=== PATIENT | male | born 1960 | race Hispanic/Latino ===

== ENCOUNTER 2018-07-07 00:20 | Emergency (ER) | payer OTHER ==
--- NOTE | 2018-07-07 01:00 | C.PDOC ---
History Of Present Illness 57 y/o male pt brought to the ER by EMS after he was found lying on the street intoxicated. Pt is drunk and reports he wants a place to stay. Pt denies SI/HI and has no physical complaints. Time Seen by Provider: 07/07/18 00:58 Chief Complaint (Nursing): Substance Abuse History Per: Patient History/Exam Limitations: intoxication Onset/Duration Of Symptoms: Hrs Current Symptoms Are (Timing): Still Present Modifying Factor(s): Alcohol Associated Symptoms: denies: Suicidal Thoughts, Suicidal Plan, Other (homicidal ideation) Involuntary Hold By: None Recent travel outside of the [place]: No Additional History Per: EMS Past Medical History Reviewed: Historical Data, Nursing Documentation, Vital Signs Vital Signs: Last Vital Signs Temp 97.5 F L 07/07/18 00:32 Pulse 69 07/07/18 00:32 Resp 18 07/07/18 00:32 BP 123/79 07/07/18 00:32 Pulse Ox 96 07/07/18 00:32 - Medical History PMH: Arthritis, HTN, Rheumatoid Arthritis - [facility] Procedures CL REDUC DISLOC-SHOULDER (12/05/13) Family History: States: No Known Family Hx - Social History Hx Tobacco Use: Yes Hx Alcohol Use: Yes Hx Substance Use: Yes (smokes pot) - Immunization History Hx Tetanus Toxoid Vaccination: No Hx Influenza Vaccination: No Hx Pneumococcal Vaccination: No Review Of Systems Constitutional: Positive for: Other (drunk ) Psych: Negative for: Suicidal ideation, Other (homicidal ideation) Physical Exam - Physical Exam Appears: Non-toxic Skin: Warm, Dry Head: Normacephalic Eye(s): bilateral: Normal Inspection Neck: Trachea Midline, Supple Chest: Symmetrical Cardiovascular: Rhythm Regular Respiratory: No Rales, No Rhonchi, No Wheezing Gastrointestinal/Abdominal: Soft, No Tenderness Extremity: Bilateral: Normal Color And Temperature Neurological/Psych: Oriented x3 ED Course And Treatment O2 Sat by Pulse Oximetry: 96 (RA) Pulse Ox Interpretation: Normal Reevaluation Time: 05:43 Reassessment Condition: Improved Disposition Counseled Patient/Family Regarding: Studies Performed, Diagnosis, Need For Followup - Disposition Referrals: [facility] [Outside] Disposition: HOME/ ROUTINE Disposition Time: 00:59 Condition: FAIR Instructions: Alcohol Abuse and Alcoholism (DC) Forms: [employer] (Estonian) - Clinical Impression Clinical Impression: Alcohol intoxication - Scribe Statement The provider has reviewed the documentation as recorded by the Scribe Ordoñez Do Provider Attestation: All medical record entries made by the Scribe were at my direction and person ally dictated by me. I have reviewed the chart and agree that the record accurately reflects my personal performance of the history, physical exam, medical decision making, and the department course for this patient. I have also personally directed, reviewed, and agree with the discharge instructions and disposition.
[2018-07-07 05:56] VITALS: BP 133/86; PULSE 81; RESP 16; TEMP 97.8; O2SAT 99
== END 2018-07-07 06:27 | disposition home or self-care (01) ==
LOC: C.ER 00:20
DX: F10.129 Alcohol abuse with intoxication, unspecified (principal); I10 Essential (primary) hypertension; M06.9 Rheumatoid arthritis, unspecified; Z72.0 Tobacco use

== ENCOUNTER 2018-08-21 06:27 | Day surgery (SDC) | payer OTHER ==
--- NOTE | 2018-08-21 08:23 | CP.SDSHP ---
Same Day Surgery H & P - History Proposed Procedure: Surveillance Egd Pre-Op Diagnosis: Liver Mass. Cirrhosis. r/o varices/surveillance - Previous Medical/Surgical History Cardiac: Hypertension Misc: Other (Chronic HCV, Cirrhosis, Liver mass suspicious for HCC) Comments: surveillance for varicies required as part of pre-operative evaluation for treatment of liver mass/hepatoma likely Previous Surgical History: bilat inguinal hernia. left knee menscus surgery - Allergies Allergies: Allergies No Known Allergies Allergy (Verified 08/21/18 06:48) - Physical Exam Vital Signs: Vital Signs 08/21/18 06:40 Temperature 97.5 F L Pulse Rate 60 Respiratory 19 Rate Blood Pressure 116/73 O2 Sat by Pulse 97 Oximetry Mental Status: Alert & Oriented x3 Neuro: WNL Heart: WNL Lungs: WNL GI: WNL - Impression Impression: liver mass. cirrhosis from HCV. surveillance for varicies Pt. Evaluated Today:Candidate for Anesthesia & Procedure: Yes - Date & Time Date: 08/21/18 Time: 08:23 Short Stay Discharge - Short Stay Discharge Admitting Diagnosis/Reason for Visit: CIRRHOSIS / CHRONIC VIRAL HEPATITIS C Disposition: HOME/ ROUTINE
[2018-08-21] MEDS ORDERED: Midazolam 2 MG/2 ML VIAL ONE (08:33)
[2018-08-21] MEDS ORDERED: Propofol 10 mg/ml Inj (20 ML) ONE (08:33)
[2018-08-21 09:11] VITALS: TEMP 98.7
[2018-08-21 09:52] VITALS: BP 122/70; PULSE 64; RESP 20; O2SAT 99
== END 2018-08-21 09:50 | disposition home or self-care (01) ==
LOC: C.ENDO 06:27
PROVIDERS: ATTEND Internal Medicine Gastroenterology
DX: K29.70 Gastritis, unspecified, without bleeding (principal); K21.9 Gastro-esophageal reflux disease without esophagitis
CPT/HCPCS: 43239; 88305; J2250; J2704

== ENCOUNTER 2018-10-31 13:11 | Outpatient (CLI) | payer OTHER | END 2018-10-31 13:12 | disposition home or self-care (01) | LOC: C.CTH 13:12 | DX: C22.0 Liver cell carcinoma (principal) ==

== ENCOUNTER 2018-11-01 10:05 | Outpatient (CLI) | payer OTHER | END 2018-11-01 10:06 | disposition home or self-care (01) | LOC: C.LAB 10:05 | DX: C22.0 Liver cell carcinoma (principal) ==

== ENCOUNTER 2018-11-06 06:36 | Day surgery (SDC) | payer OTHER ==
[2018-11-06 07:04] VITALS: BMI 29.3
[2018-11-06 07:20] VITALS: PULSE 75; RESP 17; TEMP 97.8; O2SAT 98
--- NOTE | 2018-11-06 08:20 | CP.SDSHP ---
Same Day Surgery H & P - History Proposed Procedure: colonoscopy Pre-Op Diagnosis: screening for colon cancer - Previous Medical/Surgical History Cardiac: Hypertension Endocrine/Metabolic: Obesity, Other (RA) Misc: Other (Cirrhosis due to HCV, Hepatoma under evaluation, Hp gastritis) - Allergies Allergies: Allergies No Known Allergies Allergy (Verified 11/05/18 14:58) - Physical Exam Vital Signs: Vital Signs 11/06/18 07:06 Temperature 97.8 F Pulse Rate 75 Respiratory 17 Rate Blood Pressure 115/73 O2 Sat by Pulse 98 Oximetry Mental Status: Alert & Oriented x3 Neuro: WNL Heart: WNL Lungs: WNL GI: WNL - Impression Impression: screening for colon cancer. cirrhosis due to hepatoma Pt. Evaluated Today:Candidate for Anesthesia & Procedure: Yes - Date & Time Date: 11/06/18 Time: 08:20 Short Stay Discharge - Short Stay Discharge Admitting Diagnosis/Reason for Visit: LIVER CELL CARCINOMA,CHRONIC VIRAL HEPATITIS C Disposition: HOME/ ROUTINE
[2018-11-06] MEDS ORDERED: Propofol 10 mg/ml Inj (20 ML) ONE ×2 (08:24→08:46)
[2018-11-06] MEDS ORDERED: Etomidate 20 mg/10ml Inj IV ONE ×2 (08:24→08:38)
[2018-11-06 08:56] VITALS: BP 123/69
== END 2018-11-06 09:47 | disposition home or self-care (01) ==
LOC: C.ENDO 06:36
PROVIDERS: ATTEND Internal Medicine Gastroenterology
DX: Z12.11 Encounter for screening for malignant neoplasm of colon (principal); C22.0 Liver cell carcinoma; B18.2 Chronic viral hepatitis C; B96.81 Helicobacter pylori [H. pylori] as the cause of diseases classified elsewhere; D12.4 Benign neoplasm of descending colon; D12.7 Benign neoplasm of rectosigmoid junction; K64.8 Other hemorrhoids
CPT/HCPCS: 45385; 88305; J2001; J2704